=== PATIENT | male | born 1960 | race African-American/Black ===

== ENCOUNTER 2020-02-09 11:01 | Emergency (ER) | payer OTHER ==
[~2020-02-09] VITALS: Ht 182.9 cm; Wt 107.5 kg
[~2020-02-09 11:01] MED LIST: AMARYL4 MG PO; FAMCYCLOVIR 50500 M1 PO; FELODIPINE ER10 MG PO; GLUCOPHAGE XR750 MG PO; LOSARTAN-HCTZ1 EAC1 PO; NORCO 5-325 TA1 EACH PO; NORFLEX100 MG PO; SIMVASTATIN40 MG PO; VICTOZA0.6 MG/0.1
[2020-02-09 11:48] LABS: URINE BILIRUBIN NEGATIVE (Negative); URINE BLOOD NEGATIVE (Negative); URINE CLARITY CLEAR; URINE COLOR YELLOW; URINE GLUCOSE-RANDOM* 3+ (Negative); URINE KETONES NEGATIVE (Negative); URINE LEUKOCYTES-REFLEX NEGATIVE (Negative); URINE NITRITE-REFLEX NEGATIVE (Negative); URINE PROTEIN (DIPSTICK) NEGATIVE (Negative); URINE SPECIFIC GRAVITY 1.015 (1.005-1.035)
[2020-02-09 11:52] LABS: ANION GAP 7 mmol/L (7-16); BUN 15 mg/dL (7-18); CHLORIDE 100 mmol/L (98-107); CO2 28 mmol/L (21-32); CREATININE 1.3 mg/dL (0.7-1.3); GLUCOSE 188 mg/dL (74-106); POTASSIUM 4.1 mmol/L (3.5-5.1); SODIUM 135 mmol/L (136-145)
[2020-02-09 11:54] LABS: ABSOLUTE NEUTROPHILS 3.2 thou/uL (1.4-8.2); BASOPHILS 1.4 % (0.0-2.0); EOSINOPHILS 1.5 % (0.0-3.0); HEMATOCRIT 35.9 % (42.0-52.0); HEMOGLOBIN 12.5 gm/dL (14.0-18.0); LYMPHOCYTES 17.9 % (24.0-44.0); MCH 32.3 pg (26.0-34.0); MCHC 34.7 g/dL (28.0-37.0); MCV 93.1 fL (80.0-100.0); MONOCYTES 7.3 % (1.0-8.0); PLATELET COUNT 182 thou/uL (150-400); POLYS 71.9 % (36.0-66.0); RBC 3.86 mil/uL (4.50-6.00); RDW 12.2 % (10.5-14.5); WBC 4.5 thou/uL (4.0-11.0)
[2020-02-09 11:58] LABS: ALBUMIN 3.8 g/dL (3.4-5.0); SGOT 33 U/L (15-37); SGPT 42 U/L (30-65); TOTAL BILIRUBIN 0.6 mg/dL (<0.1-1.0); TOTAL PROTEIN 7.9 g/dL (6.4-8.2)
[2020-02-09 11:59] LABS: DIRECT BILIRUBIN < 0.1 mg/dL (<0.1-0.2)
[2020-02-09] MEDS ORDERED: januvia PO (12:06)
[2020-02-09 13:20] VITALS: BP 138/77
== END 2020-02-09 13:30 | disposition home or self-care (01) ==
LOC: ER 11:01
PROVIDERS: Emergency Medicine
DX: R42 Dizziness and giddiness (principal); R11.0 Nausea; H53.8 Other visual disturbances; E11.9 Type 2 diabetes mellitus without complications; I10 Essential (primary) hypertension; Z79.899 Other long term (current) drug therapy